=== PATIENT | female | born 1995 | race African-American/Black ===

== ENCOUNTER 2017-11-15 21:58 | Emergency (ER) | payer MEDICAID, OTHER ==
[~2017-11-15] VITALS: Ht 157.5 cm; Wt 59.4 kg
[2017-11-15 22:48] VITALS: BP 121/81
[2017-11-15] MEDS ORDERED: Bacitracin Oint UD TOPIC ONE ×2 (22:57→23:00)
[2017-11-15] MEDS ORDERED: Cephalexin 500mg cap ORAL ONE (23:00)
[2017-11-15] MEDS ORDERED: Bactrim-DS 1 tab ORAL ONE (23:00)
[2017-11-15] MEDS ORDERED: CEPHALEXIN500 MG ORAL (23:09)
[2017-11-15] MEDS ORDERED: BACTRIM DS TAB1 EAC1 ORAL (23:09)
[2017-11-15] MEDS ORDERED: BACITRACIN15 GM TOPIC (23:09)
[2017-11-15 23:14] VITALS: BP 121/81
--- NOTE | 2017-11-16 02:46 | Emergency Room Report ---
History of Present Illness General Chief Complaint: Skin Rash/Abscess Source: Patient Present Illness HPI 21-year-old female presents ED complaining of pain and swelling to the left ankle. States while at work today she was bitten by an insect. Noticed a blister and swelling to the left ankle. States she popped the blister and noticed some drainage. Pain is dull, 4 out of 10, nonradiating. Denies fevers or chills. No other aggravating or relieving factors. Denies any other associated symptoms Allergies: Coded Allergies: No Known Allergies (Unverified , 11/15/17) Patient History Past Medical History: none Past Surgical History: none Pertinent Family History: none Social History: Denies: smoking, alcohol use, drug use Last Menstrual Period: unk Now: No - nexplanon implant on left inner arm Immunizations: UTD Reviewed Nursing Documentation: PMH: Agreed; PSxH: Agreed Nursing Documentation-PMH Past Medical History: No Stated History Review of Systems All Other Systems: negative except mentioned in HPI Physical Exam Vital Signs Date Time Temp Pulse Resp B/P (MAP) Pulse Ox O2 Delivery O2 Flow Rate FiO2 11/15/17 22:32 99.1 97 16 121/81 94 99.1 Sp02 EP Interpretation: reviewed, normal General Appearance: no apparent distress, alert, GCS 15, non-toxic Head: normocephalic Eyes: bilateral eye normal inspection, bilateral eye PERRL ENT: normal ENT inspection Neck: normal inspection Respiratory: normal inspection Cardiovascular #1: normal inspection Gastrointestinal: normal inspection Rectal: deferred Genitourinary: no CVA tenderness Musculoskeletal: back normal, gait/station normal, normal range of motion, non- tender Neurologic: alert, oriented x3, responsive, motor strength/tone normal, sensory intact, speech normal Psychiatric: judgement/insight normal, memory normal, mood/affect normal, no suicidal/homicidal ideation Skin: other - 1cm blister with surrounding erythema/induration to L ankle. no discharge Lymphatic: normal inspection Medical Decision Making Diagnostic Impression: Primary Impression: Insect bite Qualified Codes: W57.XXXA - Bitten or stung by nonvenomous insect and other nonvenomous arthropods, initial encounter ER Course Hospital Course 21-year-old female presents to ED with redness, swelling to L ankle Differential diagnoses include: Cellulitis, dermatitis, insect bite, abscess Clinical course Patient placed on stretcher. After initial history, physical exam reveals a female in no acute distress. On exam there is a blister with surrounding erythema/induration to the L ankle. There is no fluctuance. discussed findings with patient. we will prescribe abx, recommend warm compresses. no indication for I&D at this time. Diagnosis - insect bite stable and discharged to home with prescription for Bactrim, Keflex. Instructed to followup with PMD. Instructed return to ED if symptoms recur or worsen Last Vital Signs Date Time Temp Pulse Resp B/P (MAP) Pulse Ox O2 Delivery O2 Flow Rate FiO2 11/15/17 23:14 99.1 97 16 121/81 94 99.1 Status: improved Disposition: HOME, SELF-CARE Condition: Stable Scripts Bacitracin (Bacitracin) 28.4 Gm Oint...g. 1 APPLIC TOPIC THREE TIMES A DAY, #28.4 GM Prov: Enrrique Araujo MD 11/15/17 Trimethoprim/Sulfamethoxazole 160/800* (BACTRIM DS TABLET*) 1 Each Tablet 1 TAB ORAL Q12H, #14 TAB 0 Refills Prov: Enrrique Araujo MD 11/15/17 Cephalexin* (KEFLEX*) 500 Mg Capsule 500 MG ORAL EVERY 6 HOURS for 7 Days, CAP Prov: Enrrique Araujo MD 11/15/17 Patient Instructions: Insect Bite, [id number] Enrrique Araujo MD Nov 16, 2017 02:46
== END 2017-11-15 23:15 | disposition home or self-care (01) ==
LOC: EMR 22:53
DX: S90.562A Insect bite (nonvenomous), left ankle, initial encounter (principal); W57.XXXA Bitten or stung by nonvenomous insect and other nonvenomous arthropods, initial encounter; Y92.9 Unspecified place or not applicable
CPT/HCPCS: 99284